=== PATIENT | female | born 1985 | race Caucasian/White ===

== ENCOUNTER 2018-07-13 09:31 | Emergency (ER) | payer OTHER, SELFPAY | END 2018-07-13 09:56 | disposition home or self-care (01) | LOC: BURERS 09:31 | DX: S39.92XA Unspecified injury of lower back, initial encounter (principal); J45.909 Unspecified asthma, uncomplicated; I10 Essential (primary) hypertension; W18.30XA Fall on same level, unspecified, initial encounter | CPT/HCPCS: 99283 ==